=== PATIENT | male | born 1960 | race American Indian/Alaskan Native ===

== ENCOUNTER 2021-03-09 08:00 | Outpatient (CLI) | payer OTHER | END 2021-03-09 08:30 | disposition home or self-care (01) | LOC: PPH VACUNA 08:00 | DX: Z23 Encounter for immunization (principal) ==

== ENCOUNTER 2021-11-27 08:00 | Outpatient (CLI) | payer OTHER | END 2021-11-27 08:30 | disposition home or self-care (01) | LOC: PPH VACUNA 08:00 | PROVIDERS: ATTEND Emergency Medicine Pediatric Emergency Medicine | DX: Z23 Encounter for immunization (principal); Z71.85 Encounter for immunization safety counseling ==

== ENCOUNTER 2025-03-28 07:19 | Inpatient (IN) | payer OTHER ==
[~2025-03-28] VITALS: Ht 177.8 cm; Wt 81.2 kg
[2025-03-28] MEDS ORDERED: 0.9 % SODIUM CHLORIDE 1,000 ML IV STA (08:37)
[2025-03-28] MEDS ORDERED: KETOROLAC TROMETHAMINE 30 MG VIAL IM STA (08:38)
[2025-03-28] MEDS ORDERED: ONDANSETRON HCL 2 MG/ML VIAL IV STA (08:43)
[2025-03-28 09:20] LABS: BASO % 0.3 % (0.1-1.2); EOS # 0.00 (0.04-0.54); EOS % 0.0 % (0.7-7.0); LYMPH # 0.69 (1.18-3.74); LYMPH % 4.6 % (19.3-53.1); MEAN PLATELET VOLUME 10.70 fl (9.4-12.4); MONO # 0.79 (0.24-0.82); MONO % 5.3 % (4.7-12.5); NEUT # 13.30 (1.56-6.13); NEUT % 89.5 % (34.0-71.1); RED CELL DISTRIBUTION WIDTH 13.2 % (11.6-14.4)
[2025-03-28 09:33] LABS: URINE APPEARANCE Clear; URINE BILIRRUBIN Negative (NEGATIVE); URINE BLOOD Trace; URINE COLOR Yellow; URINE GLUCOSE Negative (NEGATIVE); URINE KETONE Trace (NEGATIVE); URINE LEUKOCYTE Negative; URINE NITRATE Negative; URINE PROTEIN 30 (NEGATIVE); URINE UROBILINOGEN 0.2 E.U./dl
[2025-03-28 09:48] LABS: ALT/SGPT 17.0 U/L (12-78); AST/SGOT 10.0 U/L (15-37); BILIRUBIN TOTAL 0.77 mg/dL (0.3-1.2); BUN CREA RATIO 16.0 (7.0-25.0); CREATININE SERUM 1.35 mg/dL (0.70-1.30); GFR 52.88; GLOBULINA 2.7 G/DL (2.4-3.5); GLUCOSE FASTING 181.0 mg/dL (65-100); OSMOLALITY SERUM 289.0 MOSM/KG (275-295)
[2025-03-28 09:50] LABS: INR 1.02
[2025-03-28 10:10] LABS: URINE BACTERIA FEW; URINE EPITHELIAL CELLS 0-4 /HPF; URINE MUCUS SCANT; URINE RBC 0-3 /HPF; URINE WBC 0-2 /hpf
[2025-03-28] MEDS ORDERED: FAMOTIDINE/PF 20 MG/2 ML VIAL IV STA (12:35)
[2025-03-28] MEDS ORDERED: HYOSCYAMINE SULFATE 0.125 MG TAB.SUBL SL STA (12:36)
[2025-03-28] MEDS ORDERED: KETOROLAC TROMETHAMINE 15 MG VIAL IV STA (12:37)
[2025-03-28] MEDS ORDERED: CIPROFLOXACIN IN 5 % DEXTROSE 400 MG/200 ML PIGGYBAG IV ONE (12:45)
[2025-03-28] MEDS ORDERED: METRONIDAZOLE/SODIUM CHLORIDE 500 MG/100 ML PIGGYBACK IV ONE (12:45)
[2025-03-28] MEDS ORDERED: 0.9 % SODIUM CHLORIDE 1,000 ML IV SCH (18:30)
[2025-03-28] MEDS ORDERED: FAMOTIDINE/PF 20 MG in 0.9 % SODIUM CHLORIDE 8 ML IV PUSH SCH (18:31)
[2025-03-28] MEDS ORDERED: MORPHINE SULFATE 4 MG/ML CARTRIDGE IV PRN (18:45)
[2025-03-28] MEDS ORDERED: ACETAMINOPHEN 500 MG GEL..CAP PO PRN (18:45)
[2025-03-28] MEDS ORDERED: ONDANSETRON HCL 4 MG in 0.9 % SODIUM CHLORIDE 50 ML IV PRN (18:45)
[2025-03-28 20:45] VITALS: BP 123/66; O2SAT 90
[2025-03-29 02:57] VITALS: BP 130/69; O2SAT 90
[2025-03-29 06:41] LABS: INR 1.07
[2025-03-29 08:32] VITALS: BP 126/68
[2025-03-29] MEDS ORDERED: TIVICAY 50 MG PO SCH (09:00)
[2025-03-29] MEDS ORDERED: CIPROFLOXACIN IN 5 % DEXTROSE 200 ML IV SCH (09:00)
[2025-03-29] MEDS ORDERED: RITONAVIR 100 MG PO SCH (09:00)
[2025-03-29] MEDS ORDERED: TAMSULOSIN HCL 0.4 MG CAP PO SCH (09:00)
[2025-03-29] MEDS ORDERED: DARUNAVIR 800 MG PO SCH (09:00)
[2025-03-29] MEDS ORDERED: DARUNAVIR ETHANOLATE 800 MG TABLET PO SCH (17:00)
[2025-03-29] MEDS ORDERED: DOLUTEGRAVIR SODIUM 50 MG TABLET PO SCH (17:00)
[2025-03-29] MEDS ORDERED: RITONAVIR 100 MG TABLET PO SCH (17:00)
[2025-03-29 17:31] VITALS: BP 124/68; O2SAT 92
[2025-03-29 17:48] LABS: ABG PH 7.442 (7.35-7.45); ABG PO2 63.8 mmHg (80-100); BICARBONATE 22.5 mmol/l (23-25); o2 21 %
[2025-03-30 02:08] VITALS: BP 137/76; O2SAT 94
[2025-03-30 07:10] LABS: ALT/SGPT 15.0 U/L (12-78); AST/SGOT 14.0 U/L (15-37); BILIRUBIN TOTAL 1.14 mg/dL (0.3-1.2); BUN CREA RATIO 16.0 (7.0-25.0); CREATININE SERUM 1.15 mg/dL (0.70-1.30); GFR 63.62; GLOBULINA 2.3 G/DL (2.4-3.5); GLUCOSE FASTING 80.0 mg/dL (65-100); OSMOLALITY SERUM 282.0 MOSM/KG (275-295)
[2025-03-30 08:55] VITALS: BP 141/76; O2SAT 93
[2025-03-30] MEDS ORDERED: LACTOBACILLUS ACIDOPHILUS 1 CAP CAP PO SCH (17:00)
[2025-03-30] MEDS ORDERED: AMINO ACIDS/PROTEIN HYDROLYS 30 ML BLIST.PACK PO SCH (17:00)
[2025-03-30] MEDS ORDERED: LEVALBUTEROL HCL 0.63 MG/3 ML SOLUTION IH SCH (18:52)
[2025-03-30 19:02] VITALS: BP 138/74; O2SAT 96
[2025-03-31 01:02] VITALS: BP 127/67; O2SAT 96
[2025-03-31 06:47] LABS: BASO % 0.6 % (0.1-1.2); EOS # 0.19 (0.04-0.54); EOS % 1.7 % (0.7-7.0); LYMPH # 1.31 (1.18-3.74); LYMPH % 12.0 % (19.3-53.1); MEAN PLATELET VOLUME 10.50 fl (9.4-12.4); MONO # 0.93 (0.24-0.82); MONO % 8.5 % (4.7-12.5); NEUT # 8.37 (1.56-6.13); NEUT % 76.8 % (34.0-71.1); RED CELL DISTRIBUTION WIDTH 13.2 % (11.6-14.4)
[2025-03-31 08:03] VITALS: BP 133/72; O2SAT 94
[2025-03-31] MEDS ORDERED: FAMOTIDINE/PF 20 MG/2 ML VIAL ONE (08:28)
[2025-03-31] MEDS ORDERED: POTASSIUM PHOS,M-BASIC-D-BASIC 3 MM/ML VIAL IV NR (10:00)
[2025-03-31 17:08] VITALS: BP 126/67
== END 2025-03-31 21:42 | DRG 445 ==
LOC: ER 07:41 → MEDJ 18:44
PROVIDERS: General Practice; Internal Medicine; Internal Medicine Infectious Disease; ADMIT Internal Medicine; ATTEND Internal Medicine
PROC: BT4JZZZ Ultrasonography of Kidneys and Bladder (ICD-10-PCS; principal; 2025-03-28)
PROC: BB24ZZZ Computerized Tomography (CT Scan) of Bilateral Lungs (ICD-10-PCS; 2025-03-29)
PROC: 3E0F7GC Introduction of Other Therapeutic Substance into Respiratory Tract, Via Natural or Artificial Opening (ICD-10-PCS; 2025-03-31)
DX: K80.00 Calculus of gallbladder with acute cholecystitis without obstruction (principal); B20 Human immunodeficiency virus [HIV] disease; N17.9 Acute kidney failure, unspecified; J98.11 Atelectasis; R05.1 Acute cough; R09.02 Hypoxemia; N40.0 Benign prostatic hyperplasia without lower urinary tract symptoms; N18.9 Chronic kidney disease, unspecified; E78.5 Hyperlipidemia, unspecified; Z88.0 Allergy status to penicillin; Z90.5 Acquired absence of kidney; Z87.891 Personal history of nicotine dependence